=== PATIENT | male | born 1980 | race Native Hawaiian/Other Pacific Islander ===

== ENCOUNTER 2021-08-05 11:12 | Emergency (ER) | payer OTHER ==
[~2021-08-05] VITALS: Ht 182.9 cm; Wt 98.9 kg
[2021-08-05 11:12] VITALS: TEMP 97
[2021-08-05 15:00] VITALS: BP 118/82
== END 2021-08-05 15:24 | disposition home or self-care (01) ==
LOC: ED 11:12
PROC: 2W3KX1Z Immobilization of Left Finger using Splint (ICD-10-PCS; principal; 2021-08-05)
PROC: 0RSXXZZ Reposition Left Finger Phalangeal Joint, External Approach (ICD-10-PCS; 2021-08-05)
DX: S63.277A Dislocation of unspecified interphalangeal joint of left little finger, initial encounter (principal); Y09 Assault by unspecified means; Y92.149 Unspecified place in prison as the place of occurrence of the external cause
CPT/HCPCS: 96372; 99283; J1885